=== PATIENT | female | born 1990 | race African-American/Black ===

== ENCOUNTER 2017-07-19 14:47 | Emergency (ER) | payer BC, MEDICAID ==
[2017-07-19] MEDS ORDERED: AMOXicillin 250 MG CAP ONE (15:10)
[2017-07-19] MEDS ORDERED: HYDROcodone/Acetaminophen 10/325 mg Tablet ONE (15:10)
[2017-07-19] MEDS ORDERED: Ibuprofen 800 MG TAB ONE (15:10)
== END 2017-07-19 15:15 | disposition home or self-care (01) ==
LOC: BURERS 14:47
DX: K02.9 Dental caries, unspecified (principal); F17.210 Nicotine dependence, cigarettes, uncomplicated
CPT/HCPCS: 99282

== ENCOUNTER 2017-07-23 16:20 | Emergency (ER) | payer MEDICAID, SELFPAY ==
[2017-07-23] MEDS ORDERED: predniSONE 20 MG TAB ONE (16:33)
== END 2017-07-23 16:38 | disposition home or self-care (01) ==
LOC: BURERS 16:20
DX: J06.9 Acute upper respiratory infection, unspecified (principal); F17.210 Nicotine dependence, cigarettes, uncomplicated
CPT/HCPCS: 99283; J7506

== ENCOUNTER 2017-11-18 18:12 | Emergency (ER) | payer SELFPAY ==
[2017-11-18] MEDS ORDERED: AMOXicillin 250 MG CAP ONE (19:13)
[2017-11-18] MEDS ORDERED: Ibuprofen 200 MG TAB ONE (19:13)
== END 2017-11-18 19:17 | disposition home or self-care (01) ==
LOC: BURERS 18:12
DX: K02.9 Dental caries, unspecified (principal); F17.210 Nicotine dependence, cigarettes, uncomplicated
CPT/HCPCS: 99282

== ENCOUNTER 2018-06-02 07:03 | Emergency (ER) | payer SELFPAY | END 2018-06-02 07:30 | disposition home or self-care (01) | LOC: BURERS 07:03 | DX: K02.9 Dental caries, unspecified (principal); K03.81 Cracked tooth; F17.210 Nicotine dependence, cigarettes, uncomplicated | CPT/HCPCS: 99282 ==